=== PATIENT | male | born 1945 | race African-American/Black ===

== ENCOUNTER 2016-10-25 00:46 | Inpatient (IN) | payer MEDICARE, OTHER ==
[2016-10-25] VITALS (9 sets, daily range): BP systolic 131–166; BP diastolic 38–91
[~2016-10-25] VITALS: Ht 188 cm; Wt 74.8 kg
[~2016-10-25 00:46] MED LIST: ALBUTEROL SULF8.5 GM INH; NKM; PREDNISONE50 MG ORAL; ZITHROMAX250 MG ORAL
[2016-10-25] MEDS ORDERED: Nitroglycerin Subl 0.4mg tab (Bottle Of 25) SL PRN (01:00)
[2016-10-25] MEDS ORDERED: Solu-MEDROL 125mg Inj IVP ONE (01:00)
[2016-10-25 01:44] LABS: BASOPHILS % (AUTO) 1.5 % (0.0-2.0); EOSINOPHILS % (AUTO) 5.9 % (0.0-3.0); LYMPHOCYTES % (AUTO) 25.4 % (20.0-45.0); MEAN CORPUSCULAR HGB CONC 32.2 G/DL (32.0-36.0); MEAN CORPUSCULAR VOLUME 90 FL (80-99); MEAN PLATELET VOLUME 6.2 FL (6.5-10.1); MONOCYTES % (AUTO) 11.7 % (1.0-10.0); NEUTROPHILS % (AUTO) 55.5 % (45.0-75.0); PLATELET COUNT 232 K/UL (150-450); RED BLOOD COUNT 4.24 M/UL (4.70-6.10); RED CELL DISTRIBUTION WIDTH 13.8 % (11.6-14.8); WHITE BLOOD COUNT 6.1 K/UL (4.8-10.8)
[2016-10-25 01:49] LABS: ALANINE AMINOTRANSFERASE 31 U/L (3-41); ALBUMIN/GLOBULIN RATIO 1.1 (1.0-2.7); ANION GAP 16 (5-15); ASPARTATE AMINO TRANSFERASE 62 U/L (5-40); CALCIUM 9.3 mg/dL (8.6-10.2); CARBON DIOXIDE 26 mEQ/L (20-30); CHLORIDE 103 mEQ/L (98-107); CREATININE 0.9 mg/dL (0.7-1.2); GLOMERULAR FILTRATION RATE > 60 mL/min (>60); HEMOLYSIS 6; POTASSIUM 3.8 mEQ/L (3.4-4.9); SODIUM 145 mEQ/L (135-145); TOTAL PROTEIN 7.6 g/dL (6.6-8.7)
[2016-10-25 01:52] LABS: TROPONIN I < 0.30 ng/mL (<=0.30)
--- NOTE | 2016-10-25 03:37 | Emergency Room Report ---
History of Present Illness General Chief Complaint: Dyspnea/Respdistress Source: Patient, EMS Present Illness HPI Patient is a 71-year-old male who presented after increased shortness of breath. Patient was given breathing treatments by paramedics. Patient prior history of COPD as well as CHF . The patient had onset of symptoms the gradual onset. Patient was noted be having increased difficulty breathing worse with supine position. Patient prior history of smoking. Allergies: Coded Allergies: NO KNOWN ALLERGIES (Unverified Allergy, Unknown, 03/26/15) Patient History Past Medical History: see triage record Reviewed Nursing Documentation: PMH: Agreed, PSxH: Agreed Nursing Documentation-PMH Hx Hypertension: Yes Hx Pacemaker: No Hx Asthma: Yes Hx COPD: Yes Hx Diabetes: No Hx Cancer: No Hx Gastrointestinal Problems: No Hx Dialysis: No Hx Neurological Problems: No Hx Cerebrovascular Accident: No Hx Seizures: No Review of Systems All Other Systems: negative except mentioned in HPI Physical Exam Vital Signs Date Time Temp Pulse Resp B/P Pulse Ox O2 Delivery O2 Flow Rate FiO2 10/25/16 00:36 104 99 4.0 10/25/16 00:36 98.1 18 186/107 Nasal Cannula Sp02 EP Interpretation: reviewed, normal General Appearance: alert, GCS 15, moderate distress, thin, Chronically Ill Head: atraumatic ENT: normal ENT inspection, hearing grossly normal, normal voice Neck: normal inspection, full range of motion, supple, no bony tend Respiratory: no retraction, accessory muscle use, wheezing, expiration Cardiovascular #1: regular rate, rhythm, no edema Gastrointestinal: normal inspection, normal bowel sounds, non tender, soft, no guarding, no hernia Genitourinary: no CVA tenderness Musculoskeletal: normal inspection, back normal, normal range of motion Neurologic: normal inspection, alert, responsive, upper leather cutter III-XII nml as tested, speech normal Psychiatric: normal inspection, judgement/insight normal, mood/affect normal Skin: normal inspection, normal color, no rash Medical Decision Making Diagnostic Impression: Primary Impression: COPD exacerbation Additional Impression: Rhabdomyolysis ER Course Patient presented for shortness of breath.Differential included but was not limited to anemia, pneumonia, pneumothorax, myocardial infarction, pericardial effusion, congestive heart failure, acidosis. Because of complexity of patient' s case laboratory testing and imaging studies were ordered.Chest x-ray one view interpreted by me showed COPD changes. The cardiac size was noted to be normal.Patient was started on IV fluids. Patient noted to have evidence of rhabdomyolysis on laboratory testing patient was given breathing treatments as well as steroids. Patient was discussed with Dr. Carmen Soriano for inpatient management Labs Test 10/25/16 01:00 10/25/16 03:30 White Blood Count 6.1 K/UL (4.8-10.8) Red Blood Count 4.24 M/UL (4.70-6.10) Hemoglobin 12.3 G/DL (14.2-18.0) Hematocrit 38.2 % (42.0-52.0) Mean Corpuscular Volume 90 FL (80-99) Mean Corpuscular Hemoglobin 29.0 PG (27.0-31.0) Mean Corpuscular Hemoglobin Concent 32.2 G/DL (32.0-36.0) Red Cell Distribution Width 13.8 % (11.6-14.8) Platelet Count 232 K/UL (150-450) Mean Platelet Volume 6.2 FL (6.5-10.1) Neutrophils (%) (Auto) 55.5 % (45.0-75.0) Lymphocytes (%) (Auto) 25.4 % (20.0-45.0) Monocytes (%) (Auto) 11.7 % (1.0-10.0) Eosinophils (%) (Auto) 5.9 % (0.0-3.0) Basophils (%) (Auto) 1.5 % (0.0-2.0) Sodium Level 145 mEQ/L (135-145) Potassium Level 3.8 mEQ/L (3.4-4.9) Chloride Level 103 mEQ/L (98-107) Carbon Dioxide Level 26 mEQ/L (20-30) Anion Gap 16 (5-15) Blood Urea Nitrogen 9 mg/dL (7-23) Creatinine 0.9 mg/dL (0.7-1.2) Estimat Glomerular Filtration Rate > 60 mL/min (>60) Glucose Level 137 mg/dL (74-106) Lactic Acid Level 1.10 mmol/L (0.66-2.22) Calcium Level 9.3 mg/dL (8.6-10.2) Total Bilirubin 0.5 mg/dL (0.0-1.2) Aspartate Amino Transf (AST/SGOT) 62 U/L (5-40) Alanine Aminotransferase (ALT/SGPT) 31 U/L (3-41) Alkaline Phosphatase 85 U/L (40-129) Total Creatine Kinase 1441 U/L (38-174) Troponin I < 0.30 ng/mL (<=0.30) Total Protein 7.6 g/dL (6.6-8.7) Albumin 4.0 g/dL (3.5-5.2) Globulin 3.6 g/dL Albumin/Globulin Ratio 1.1 (1.0-2.7) Chest X-Ray Diagnostic Results EP Interpretation: Yes Findings: no consolidation, no effusion, no pneumothorax, no acute cardiopulmonary disease Number of Views: 1 Last Vital Signs Date Time Temp Pulse Resp B/P Pulse Ox O2 Delivery O2 Flow Rate FiO2 10/25/16 01:00 98.2 81 22 157/89 100 Nasal Cannula 2.0 Status: unchanged Disposition: ADMITTED INPATIENT Condition: Serious Phan Henderson Oct 25, 2016 03:37
[2016-10-25 04:29] LABS: APPEARANCE,URINE CLEAR; KETONES,URINE NEGATIVE (NEGATIVE); LEUKOCYTE ESTERASE ,URINE NEGATIVE (NEGATIVE); NITRITE,URINE NEGATIVE (NEGATIVE); PH,URINE 7 (4.5-8.0); PROTEIN,URINE 2+ (NEGATIVE); UROBILINOGEN,URINE NORMAL MG/DL (0.0-1.0)
[2016-10-25 04:39] LABS: BACTERIA,URINE FEW /HPF; RBC,URINE 0-2 /HPF (0 - 0); SQUAMOUS EPITHELIAL CELL,UR FEW /LPF (NONE/OCC); WBC,URINE 0-2 /HPF (0 - 0)
[2016-10-25 05:13] LABS: CKMB 18.9 ng/mL (< 6.7)
[2016-10-25] MEDS ORDERED: NKM (06:41)
[2016-10-25] MEDS ORDERED: DuoNeb 0.5-3(2.5)mg/3ml neb HHN PRN ×2 (08:15→16:00)
--- NOTE | 2016-10-25 08:36 | Infectious Diseases Prog Note ---
Assessment/Plan Problems: (1) Asthma exacerbation Assessment & Plan: will start levaquin, send sputum for culture (2) COPD exacerbation Assessment & Plan: will start levaquin empirically , and send sputum culture, continue nebulizers (3) CHF (congestive heart failure) Assessment & Plan: continue diuretics, consult cardiology (4) Tobacco abuse disorder Assessment & Plan: recommend counseling, and tobacco cessation (5) Rhabdomyolysis Assessment & Plan: continue hydration, monitor CK level (6) Cocaine abuse Assessment & Plan: recommend counseling and rehab Subjective Allergies: Coded Allergies: NO KNOWN ALLERGIES (Unverified Allergy, Unknown, 03/26/15) Objective Vital Signs Last 24 Hour Vital Signs Date Time Temp Pulse Resp B/P Pulse Ox O2 Delivery O2 Flow Rate FiO2 10/25/16 08:27 97.7 72 20 166/73 95 Nasal Cannula 1.0 10/25/16 06:47 98.7 78 21 154/76 92 10/25/16 06:30 98.6 84 17 143/38 100 Room Air 10/25/16 06:04 98.6 84 17 143/38 100 Room Air 10/25/16 05:45 157/89 10/25/16 04:55 98.4 82 18 160/88 99 Room Air 10/25/16 03:00 84 19 155/87 100 Nasal Cannula 2.0 10/25/16 01:00 98.2 81 22 157/89 100 Nasal Cannula 2.0 10/25/16 01:00 81 22 Nasal Cannula 2.0 10/25/16 00:36 98.1 114 18 186/107 94 Nasal Cannula 2.0 10/25/16 00:36 104 99 4.0 Height (Feet): 6 Height (Inches): 2.00 Weight (Pounds): 165 Laboratory Tests Test 10/25/16 01:00 10/25/16 03:30 White Blood Count 6.1 K/UL (4.8-10.8) Red Blood Count 4.24 M/UL (4.70-6.10) L Hemoglobin 12.3 G/DL (14.2-18.0) L Hematocrit 38.2 % (42.0-52.0) L Mean Corpuscular Volume 90 FL (80-99) Mean Corpuscular Hemoglobin 29.0 PG (27.0-31.0) Mean Corpuscular Hemoglobin Concent 32.2 G/DL (32.0-36.0) Red Cell Distribution Width 13.8 % (11.6-14.8) Platelet Count 232 K/UL (150-450) Mean Platelet Volume 6.2 FL (6.5-10.1) L Neutrophils (%) (Auto) 55.5 % (45.0-75.0) Lymphocytes (%) (Auto) 25.4 % (20.0-45.0) Monocytes (%) (Auto) 11.7 % (1.0-10.0) H Eosinophils (%) (Auto) 5.9 % (0.0-3.0) H Basophils (%) (Auto) 1.5 % (0.0-2.0) Sodium Level 145 mEQ/L (135-145) Potassium Level 3.8 mEQ/L (3.4-4.9) Chloride Level 103 mEQ/L (98-107) Carbon Dioxide Level 26 mEQ/L (20-30) Anion Gap 16 (5-15) H Blood Urea Nitrogen 9 mg/dL (7-23) Creatinine 0.9 mg/dL (0.7-1.2) Estimat Glomerular Filtration Rate > 60 mL/min (>60) Glucose Level 137 mg/dL (74-106) H Lactic Acid Level 1.10 mmol/L (0.66-2.22) Calcium Level 9.3 mg/dL (8.6-10.2) Total Bilirubin 0.5 mg/dL (0.0-1.2) Aspartate Amino Transf (AST/SGOT) 62 U/L (5-40) H Alanine Aminotransferase (ALT/SGPT) 31 U/L (3-41) Alkaline Phosphatase 85 U/L (40-129) Total Creatine Kinase 1441 U/L (38-174) H Creatine Kinase MB 18.9 ng/mL (< 6.7) H Creatine Kinase MB Relative Index 1.3 Troponin I < 0.30 ng/mL (<=0.30) Total Protein 7.6 g/dL (6.6-8.7) Albumin 4.0 g/dL (3.5-5.2) Globulin 3.6 g/dL Albumin/Globulin Ratio 1.1 (1.0-2.7) Urine Color Pale yellow Urine Appearance Clear Urine pH 7 (4.5-8.0) Urine Specific [place] 1.010 (1.005-1.035) Urine Protein 2+ (NEGATIVE) H Urine Glucose (UA) Negative (NEGATIVE) Urine Ketones Negative (NEGATIVE) Urine Occult Blood Negative (NEGATIVE) Urine Nitrite Negative (NEGATIVE) Urine Bilirubin Negative (NEGATIVE) Urine Urobilinogen Normal MG/DL (0.0-1.0) Urine Leukocyte Esterase Negative (NEGATIVE) Urine RBC 0-2 /HPF (0 - 0) H Urine WBC 0-2 /HPF (0 - 0) Urine Squamous Epithelial Cells Few /LPF (NONE/OCC) Urine Bacteria Few /HPF (NONE) Current Medications Medications (Trade) Dose Ordered Sig/[place] Route PRN Reason Start Time Stop Time Status Last Admin Dose Admin Acetaminophen (Tylenol) 650 mg Q4H PRN ORAL Mild Pain/Temp > 100.5 10/25/16 08:15 11/24/16 08:14 Albuterol/ Ipratropium (DuoNeb 0.5-3(2.5)mg/3ml) 3 ml Q4H PRN HHN Shortness of Breath 10/25/16 08:15 10/30/16 08:14 Harley Sykes M.D. Oct 25, 2016 08:36
--- NOTE | 2016-10-25 11:59 | Diagnostic Imaging Report ---
Indication: SOB Technique: One view of the chest Comparison: 12/27/2012 Findings: Lungs are hyperinflated, as in COPD. Lungs and pleural spaces are clear. The heart size is normal. Aorta is elongated tortuous and calcified. Impression: COPD changes No acute process This agrees with the preliminary interpretation provided by the emergency room physician
[2016-10-25] MEDS ORDERED: Promethazine/Codeine 5ml UD ORAL PRN ×2 (12:00→16:00)
[2016-10-25] MEDS ORDERED: Solu-MEDROL 125mg Inj IV SCH (12:00)
--- NOTE | 2016-10-25 12:04 | Consultation ---
History of Present Illness General Date patient seen: Oct 25, 2016 Chief Complaint: Dyspnea/Respdistress Referring physician: Dr. Bell Reason for Consultation: Dyspnea Present Illness HPI 71-year-old homeless male, current smoker, crack user, with hx of COPD who presented after increased shortness of breath. Patient was given breathing treatments by paramedics. He was having increased difficulty breathing worse with supine position. Pt was in respiratory distress in Er and is admitted to telemetry for further evaluation Allergies: Coded Allergies: NO KNOWN ALLERGIES (Unverified Allergy, Unknown, 03/26/15) Medication History Scheduled No Known Medications* (NKM - No Known Medications*), 0 ., (Reported) Discontinued Medications Albuterol Sulfate* (Albuterol Sulfate Mdi*), 2 PUFF INH Q4H Discontinued Reason: Therapy completed Albuterol Sulfate* (Albuterol Sulfate Mdi*), 2 PUFF INH Q4H PRN for Shortness of Breath Discontinued Reason: Therapy completed Albuterol Sulfate* (Albuterol Sulfate Mdi*), 2 PUFF INH Q4H PRN for For Cough Discontinued Reason: Therapy completed Azithromycin* (Zithromax*), 250 MG ORAL DAILY Discontinued Reason: Therapy completed Prednisone* (Prednisone*), 50 MG ORAL DAILY Discontinued Reason: Therapy completed Prednisone* (Prednisone*), 50 MG ORAL DAILY Discontinued Reason: Therapy completed Patient History Healthcare decision maker Resuscitation status Full Code Advanced Directive on File Past Medical/Surgical History Past Medical/Surgical History: (1) COPD (chronic obstructive pulmonary disease) (2) Homelessness Review of Systems All Other Systems: negative except mentioned in HPI Physical Exam General Appearance: cachetic Lines, tubes and drains: peripheral, central line HEENT: normocephalic, anicteric Neck: non-tender, normal alignment Respiratory/Chest: chest wall non-tender, decreased breath sounds, rhonchi - bilaterally Cardiovascular/Chest: normal peripheral pulses, normal rate, no JVD Abdomen: normal bowel sounds Genitourinary/Rectal: normal genital exam, normal rectal exam Extremities: normal range of motion Last 24 Hour Vital Signs Date Time Temp Pulse Resp B/P Pulse Ox O2 Delivery O2 Flow Rate FiO2 10/25/16 11:23 97.0 77 20 161/91 95 Nasal Cannula 1.0 10/25/16 08:27 97.7 72 20 166/73 95 Nasal Cannula 1.0 10/25/16 08:00 70 10/25/16 06:47 98.7 78 21 154/76 92 10/25/16 06:30 98.6 84 17 143/38 100 Room Air 10/25/16 06:04 98.6 84 17 143/38 100 Room Air 10/25/16 05:45 157/89 10/25/16 04:55 98.4 82 18 160/88 99 Room Air 10/25/16 03:00 84 19 155/87 100 Nasal Cannula 2.0 10/25/16 01:00 98.2 81 22 157/89 100 Nasal Cannula 2.0 10/25/16 01:00 81 22 Nasal Cannula 2.0 10/25/16 00:36 98.1 114 18 186/107 94 Nasal Cannula 2.0 10/25/16 00:36 104 99 4.0 Intake and Output 10/24/16 10/25/16 19:00 07:00 Intake Total 1000 ml Output Total 1350 ml Balance -350 ml Intake IV Total 1000 ml Output Urine Total 1350 ml # Voids 2 Laboratory Tests Test 10/25/16 01:00 10/25/16 03:30 White Blood Count 6.1 K/UL (4.8-10.8) Red Blood Count 4.24 M/UL (4.70-6.10) L Hemoglobin 12.3 G/DL (14.2-18.0) L Hematocrit 38.2 % (42.0-52.0) L Mean Corpuscular Volume 90 FL (80-99) Mean Corpuscular Hemoglobin 29.0 PG (27.0-31.0) Mean Corpuscular Hemoglobin Concent 32.2 G/DL (32.0-36.0) Red Cell Distribution Width 13.8 % (11.6-14.8) Platelet Count 232 K/UL (150-450) Mean Platelet Volume 6.2 FL (6.5-10.1) L Neutrophils (%) (Auto) 55.5 % (45.0-75.0) Lymphocytes (%) (Auto) 25.4 % (20.0-45.0) Monocytes (%) (Auto) 11.7 % (1.0-10.0) H Eosinophils (%) (Auto) 5.9 % (0.0-3.0) H Basophils (%) (Auto) 1.5 % (0.0-2.0) Sodium Level 145 mEQ/L (135-145) Potassium Level 3.8 mEQ/L (3.4-4.9) Chloride Level 103 mEQ/L (98-107) Carbon Dioxide Level 26 mEQ/L (20-30) Anion Gap 16 (5-15) H Blood Urea Nitrogen 9 mg/dL (7-23) Creatinine 0.9 mg/dL (0.7-1.2) Estimat Glomerular Filtration Rate > 60 mL/min (>60) Glucose Level 137 mg/dL (74-106) H Lactic Acid Level 1.10 mmol/L (0.66-2.22) Calcium Level 9.3 mg/dL (8.6-10.2) Total Bilirubin 0.5 mg/dL (0.0-1.2) Aspartate Amino Transf (AST/SGOT) 62 U/L (5-40) H Alanine Aminotransferase (ALT/SGPT) 31 U/L (3-41) Alkaline Phosphatase 85 U/L (40-129) Total Creatine Kinase 1441 U/L (38-174) H Creatine Kinase MB 18.9 ng/mL (< 6.7) H Creatine Kinase MB Relative Index 1.3 Troponin I < 0.30 ng/mL (<=0.30) Total Protein 7.6 g/dL (6.6-8.7) Albumin 4.0 g/dL (3.5-5.2) Globulin 3.6 g/dL Albumin/Globulin Ratio 1.1 (1.0-2.7) Urine Color Pale yellow Urine Appearance Clear Urine pH 7 (4.5-8.0) Urine Specific [place] 1.010 (1.005-1.035) Urine Protein 2+ (NEGATIVE) H Urine Glucose (UA) Negative (NEGATIVE) Urine Ketones Negative (NEGATIVE) Urine Occult Blood Negative (NEGATIVE) Urine Nitrite Negative (NEGATIVE) Urine Bilirubin Negative (NEGATIVE) Urine Urobilinogen Normal MG/DL (0.0-1.0) Urine Leukocyte Esterase Negative (NEGATIVE) Urine RBC 0-2 /HPF (0 - 0) H Urine WBC 0-2 /HPF (0 - 0) Urine Squamous Epithelial Cells Few /LPF (NONE/OCC) Urine Bacteria Few /HPF (NONE) Height (Feet): 6 Height (Inches): 2.00 Weight (Pounds): 165 Medications Current Medications Medications (Trade) Dose Ordered Sig/[place] Route PRN Reason Start Time Stop Time Status Last Admin Dose Admin Acetaminophen 650 mg 650 mg Q4H PRN ORAL Mild Pain/Temp > 100.5 10/25/16 08:15 11/24/16 08:14 Albuterol/ Ipratropium (DuoNeb 0.5-3(2.5)mg/3ml) 3 ml Q4H PRN HHN Shortness of Breath 10/25/16 08:15 10/30/16 08:14 Albuterol/ Ipratropium (DuoNeb 0.5-3(2.5)mg/3ml) 3 ml Q6HRT HHN 10/25/16 13:00 10/30/16 12:59 Levofloxacin (Levaquin) 100 ml @ 100 mls/hr Q24H IVPB 10/25/16 10:00 11/01/16 09:59 10/25/16 10:10 Promethazine HCl/ Codeine (Phenergan with Codeine) 5 ml Q4H PRN ORAL For Cough 10/25/16 12:00 11/24/16 11:59 Theophylline ([place]) 100 mg QHS ORAL 10/25/16 21:00 11/24/16 20:59 Assessment/Plan Problem List: (1) Purulent bronchitis ICD Codes: J41.1 - Mucopurulent chronic bronchitis SNOMED: 76329448 (2) COPD exacerbation ICD Codes: J44.1 - Chronic obstructive pulmonary disease with (acute) exacerbation SNOMED: 464865793 (3) Tobacco abuse disorder ICD Codes: Z72.0 - Tobacco use SNOMED: 72996905, 612146037 (4) Homelessness ICD Codes: Z59.0 - Homelessness SNOMED: 28974113 Assessment/Plan respiratory treatment IV antibioitcs steroids check sputum social service check urine for drugs. SHABNAM MARIN Oct 25, 2016 12:04
[2016-10-25] MEDS ORDERED: DuoNeb 0.5-3(2.5)mg/3ml neb HHN SCH (13:00)
[2016-10-25 13:05] LABS: PROTHROMBIN TIME 10.5 SEC (9.30-11.50)
[2016-10-25 13:17] LABS: BAND NEUTROPHILS % (MANUAL) 0 % (0-8); BASOPHILS % (MANUAL) 0 % (0-2); EOSINOPHILS % (MANUAL) 6 % (0-3); LYMPHOCYTES % (MANUAL) 29 % (20-45); NEUTROPHILS % (MANUAL) 55 % (45-75); PLATELET ESTIMATE ADEQUATE; TOTAL CELLS COUNTED 100
[2016-10-25 13:18] LABS: ANISOCYTOSIS 1+; HYPOCHROMASIA 1+; PLATELET MORPHOLOGY NORMAL
[2016-10-25 13:20] LABS: PATH BLOOD SMEAR/OMC SENT TO PATHOLOGIST
[2016-10-25 14:06] LABS: RETICULOCYTE COUNT 0.7 % (0.0-2.0)
--- NOTE | 2016-10-25 17:07 | History and Physical Report ---
DATE OF ADMISSION: 10/25/2016 HISTORY OF PRESENT ILLNESS: The patient is admitted for COPD exacerbation and rhabdomyolysis. The patient is complaining of shortness of breath. The patient is also apparently homeless and wheezing and cough. He is admitted for COPD exacerbation as well as mild rhabdomyolysis. Denies orthopnea. PAST MEDICAL HISTORY: History of COPD/asthma, CHF, and hypertension. PAST SURGICAL HISTORY: Hernia surgery repair. ALLERGIES: No known allergies. MEDICATIONS: None. SOCIAL HISTORY: The patient is homeless. The patient denies history of smoking. The patient does smoke. He is homeless, and has drug and alcohol abuse. FAMILY HISTORY: Noncontributory. REVIEW OF SYSTEMS: HEENT: Denies headache. Respiratory: Reports shortness of breath. Reports cough for the past couple of days and wheezing. Cardiovascular: Denies chest pain. Gastrointestinal: Denies nausea, vomiting, and diarrhea. Extremities: Denies pain. Central Nervous System: Denies change in vision or speech pattern. PHYSICAL EXAMINATION: VITAL SIGNS: Temperature is 98.4, pulse is 82, and blood pressure 160/88. HEENT: PERRLA. NECK: Supple. No lymphadenopathy. CHEST: Does have bilateral wheezing. CARDIOVASCULAR: Regular rate and rhythm. GASTROINTESTINAL: Soft, nontender, and nondistended. No organomegaly. EXTREMITIES: No edema. Moves all four extremities. NEUROLOGIC: Sensory intact to light touch. Reflexes are equal on both sides. Moves all four extremities. LABORATORY DATA: WBC of 6.1, hemoglobin 12.3, and platelets of 232,000. Sodium 145, potassium 3.8, BUN of 9, creatinine 0.9, and glucose of 137. CPK of 1441. ASSESSMENT AND PLAN: Rhabdomyolysis. Dr. Laguerre was consulted for IV fluids for the rhabdomyolysis and chronic obstructive pulmonary disease exacerbation; Dr. Holbrook as well as Dr. Sykes were consulted for wheezing, for the COPD, as well as bronchitis; and Dr. Gay because the patient has paranoid ideations and schizophrenia for medication management. Social Work is also consulted. The patient is weak. Carmen Bell M.D. DR: JACQUIE JOB#: [id number] CC:
[2016-10-25] MEDS: Solu-MEDROL 125mg Inj IV SCH ×2 (17:52→23:50)
[2016-10-25] MEDS: DuoNeb 0.5-3(2.5)mg/3ml neb HHN SCH (19:07)
[2016-10-25] MEDS ORDERED: Theophylline ER 100mg ORAL SCH ×2 (21:00)
--- NOTE | 2016-10-25 23:18 | Consultation ---
DATE OF CONSULTATION: INFECTIOUS DISEASE CONSULTATION: REASON FOR CONSULTATION: COPD exacerbation and recommendation for antibiotics therapy. REQUESTING PHYSICIAN: Carmen Bell M.D. HISTORY OF PRESENT ILLNESS: The patient is a 71-year-old male with past medical history of COPD, asthma, and hypertension, presented to [facility] with increased shortness of breath. The patient received nebulizer treatment by the paramedics with no significant improvement. He has been short of breath for the last couple of days. It gets worse with activities and lying flat. He is a former smoker but denied any current smoking at this point. The patient had tachycardia with temperature of 98.1 degrees in the emergency room. He was saturating 99% on nasal cannula. His chest x-ray showed no acute pathology, but urine toxicology screening was positive for cocaine, so, I was consulted by the primary provider for antibiotics recommendation for his COPD exacerbation. PAST MEDICAL HISTORY: Significant for hypertension, asthma, and COPD. PAST SURGICAL HISTORY: Negative. MEDICATIONS: He received Levaquin in the emergency room. In the field, prednisolone. For further details, please refer to MAR. ALLERGIES: He has no known drug allergy. SOCIAL HISTORY: The patient is homeless. He used drugs mainly cocaine and former smoker. FAMILY HISTORY: Not contributory. REVIEW OF SYSTEMS: A 12-point system reviewed were all negative apart from the one I mentioned above in my History and Physical. PHYSICAL EXAMINATION: VITAL SIGNS: Temperature 97.9 degrees, pulse 74, respirations 22, blood pressure 131/68, and saturation 98% on two liters nasal cannula. GENERAL: This is an elderly male, up in bed, alert, but lethargic, coughing, not in acute distress. HEENT: Normocephalic and atraumatic. Pupils are reactive to light. Congested sclera. Dry oral mucosa. Poor dental hygiene. NECK: Supple. No lymphadenopathy. CARDIOVASCULAR: Regular rate and rhythm. No murmur or gallop. LUNGS: He had wheezing on both sides. Diminished breathing sounds. No respiratory distress. ABDOMEN: Soft, nontender, and nondistended. Positive bowel sounds. No hepatosplenomegaly or ascites. EXTREMITIES: No edema or cyanosis. LABORATORY AND DIAGNOSTIC DATA: Lab showed white count 6.1, hemoglobin 12.3, and platelet count 232,000. BUN 9 and creatinine 0.9. Toxicology screening positive for cocaine. Urinalysis negative for nitrite and leukocyte esterase with few bacteria. Imaging, chest x-ray showed no acute process. ASSESSMENT AND PLAN: 1. Acute asthma with chronic obstructive pulmonary disease exacerbation. We will start Levaquin empirically. Send sputum for culture and influenza screening. Continue nebulizer treatment. Titrate oxygen as needed. 2. Possible congestive heart failure. Continue diuretics. Consult cardiology. Obtain an echocardiogram. 3. Tobacco abuse disorder. Recommend counseling and tobacco cessation. 4. Rhabdomyolysis. Continue hydration. Monitor CK level. 5. Cocaine abuse. Recommend counseling and rehabilitation. Harley Sykes M.D. DR: Jennifer JOB#: [id number] CC:
--- NOTE | 2016-10-25 23:18 | Cardiology Report ---
APPROVED REPORT EKG Measurement Heart [id number] Sinus rhythm with premature supraventricular complexes Right atrial enlargement Voltage criteria for left ventricular hypertrophy Nonspecific ST abnormality Abnormal ECG
--- NOTE | 2016-10-25 23:48 | Consultation ---
DATE OF CONSULTATION: 10/25/2016 HISTORY OF PRESENT ILLNESS: This is a 71-year-old male with a history of COPD and rhabdomyolysis. The patient was admitted for shortness of breath and medical proposition. He also had mild rhabdomyolysis. Psychiatry was consulted. The patient has been presenting with delusions, paranoid, anxious and has also history of psychotic disorder. During the evaluation, the patient is endorsing delusions, depressed mood and decreased energy. PAST PSYCHIATRIC HISTORY: Diagnosed with schizophrenia and has been treated with antipsychotics in the past. PAST MEDICAL HISTORY: Includes chronic obstructive pulmonary disease, asthma, congestive heart failure and hypertension. PAST SURGICAL HISTORY: Hernia. ALLERGIES: No known drug allergies. CURRENT MEDICATIONS: He has not been taking any medications. SUBSTANCE ABUSE HISTORY: He has a history of illicit drug use and alcohol. However, he denies any smoking in the past. SOCIAL HISTORY: The patient is homeless on [facility]. MENTAL STATUS EXAMINATION: The patient is alert and oriented x3. His mood is neutral. Affect is constricted. Congruent mood. Thought process is concrete. Thought content, there is no suicidal or homicidal ideation. Positive for delusions. Insight and judgment is impaired. ASSESSMENT: AXIS I Psychotic disorder. AXIS II Deferred. AXIS III As above. AXIS Moderate. AXIS V 50. PLAN: The patient may benefit from low-dose of antipsychotics. He is reluctant to take any medication at this time. He was provided with supportive therapy and reality orientation with attempts and educated the patient more and encouraged him to take medications. Enedelia Gay M.D. DR: DORA JOB#: [id number] CC:
[2016-10-26] VITALS: BP 142/81
[2016-10-26] MEDS: DuoNeb 0.5-3(2.5)mg/3ml neb HHN SCH ×2 (00:53→07:24)
[2016-10-26 04:00] VITALS: BP 139/77
[2016-10-26] MEDS: Solu-MEDROL 125mg Inj IV SCH (05:40)
[2016-10-26 07:03] LABS: MEAN CORPUSCULAR HGB CONC 31.8 G/DL (32.0-36.0); MEAN CORPUSCULAR VOLUME 91 FL (80-99); MEAN PLATELET VOLUME 6.6 FL (6.5-10.1); PLATELET COUNT 219 K/UL (150-450); RED BLOOD COUNT 4.01 M/UL (4.70-6.10); RED CELL DISTRIBUTION WIDTH 14.2 % (11.6-14.8); WHITE BLOOD COUNT 7.4 K/UL (4.8-10.8)
[2016-10-26 07:50] VITALS: BP 151/94
[2016-10-26 09:38] LABS: ANISOCYTOSIS 1+; BAND NEUTROPHILS % (MANUAL) 1 % (0-8); BASOPHILS % (MANUAL) 0 % (0-2); EOSINOPHILS % (MANUAL) 0 % (0-3); HYPOCHROMASIA 1+; LYMPHOCYTES % (MANUAL) 7 % (20-45); NEUTROPHILS % (MANUAL) 88 % (45-75); PLATELET ESTIMATE ADEQUATE; PLATELET MORPHOLOGY NORMAL; TOTAL CELLS COUNTED 100
--- NOTE | 2016-10-26 11:06 | Cardiology Report ---
APPROVED REPORT EXAM: Two-dimensional and M-mode echocardiogram with Doppler and color Doppler. INDICATION Left ventricular function M-Mode DIMENSIONS IVSd0.8 (0.7-1.1cm)Left Atrium (MM)3.3 (1.6-4.0cm) LVDd5.2 (3.5-5.6cm)Aortic Root2.5 (2.0-3.7cm) PWd0.9 (0.7-1.1cm)Aortic Cusp Exc.2.0 (1.5-2.0cm) LVDs3.2 (2.5-4.0cm) PWs1.4 cm Technically difficult study due to poor acoustic windows. Normal left ventricular chamber size, systolic function and wall motion. Left ventricular ejection fraction estimated to be 60-65%. No evidence of left ventricular hypertrophy. No evidence of pericardial fat or effusion. All other cardiac chamber sizes are within normal limits. Focal aortic valve sclerosis with adequate cusp excursion Thickened mitral valve leaflets with normal excursion. Mitral annulus and aortic root calcification. Pulmonic valve not well visualized. Normal tricuspid valve structure. IVC is normal in size with physiologic collapse. A color flow and spectral Doppler study was performed and revealed: No aortic regurgitation. No mitral regurgitation. Left ventricular diastolic dysfunction not obtainable due to aarhythmia. No tricuspid regurgitation.
--- NOTE | 2016-10-27 12:09 | Diagnostic Imaging Report ---
APPROVED REPORT CPT Code: 00279 Present Symptoms Shortness of breath BILATERAL: Imaging reveals a patent deep venous system bilaterally. There is no evidence of thrombus within the femoral, popliteal or tibial segments. The greater saphenous veins are also within normal limits. Doppler indicates normal spontaneous flow within these segments. Incidental finding: Mildly calcified arteries and veins throughout.
--- NOTE | 2016-10-27 16:05 | Discharge Summary ---
Discharge Summary Hospital Course Date of Admission Oct 25, 2016 at 04:25 Date of Discharge Oct 26, 2016 at 08:40 Admitting Diagnosis copd exacerbation, rhabdo HPI Brandon Oquendo is a 71 year old male who was admitted on Oct 25, 2016 at 04:25 for Chronic Obstructive Pulmonary Exacerbation,[facility] Course [id number] Discharge Discharge Disposition Patient left AMA Discharge Diagnoses: Bernie Thao NP Oct 27, 2016 16:05
--- NOTE | 2016-10-28 01:38 | Discharge Summary 2 SIG ---
DATE OF ADMISSION: 10/25/2016 DATE OF DISCHARGE: 10/26/2016 CONSULTANTS: 1. Enedelia Gay M.D. 2. Harley Sykes M.D. 3. Eugene Holbrook M.D. BRIEF HOSPITAL COURSE: The patient is a 71-year-old male who presented to the ED complaining of shortness of breath. He has history of chronic obstructive pulmonary disease as well as congestive heart failure. Symptoms had gradual onset with increased difficulty breathing worse with supine position. On evaluation at ED, chest x-ray showed chronic obstructive pulmonary disease changes with evidence of rhabdomyolysis. The patient was given IV hydration, breathing treatments and IV steroids and was admitted for inpatient care. Dr. Holbrook was consulted. The patient was given respiratory treatment. Dr. Sykes was consulted for antibiotic management. The patient was started empirically on Levaquin. Influenza A and B was negative. Dr. Gay was consulted. The patient presented with delusions, paranoia, and anxiety and has a history of psychotic disorder. There was no suicidal or homicidal ideation. Insight and judgment was impaired. The patient was recommended to be started on low-dose antipsychotics; however, he was reluctant to take any medications. He was provided with supportive therapy and reality orientation. Full treatment was not carried out as the patient signed out against medical advice. FINAL DIAGNOSES: 1. Acute asthma exacerbation. 2. Acute chronic obstructive pulmonary disease exacerbation. 3. Tobacco use disorder. 4. Rhabdomyolysis. 5. Purulent bronchitis. 6. Homelessness. 7. Cocaine abuse. 8. Noncompliance as the patient signed out against medical advice. Carmen Bell M.D. I have been assigned to dictate discharge summary on this account and I was not involved in the patient's management. Bernie Thao N.P. DR: ROSS JOB#: [id number] CC: [facility]
== END 2016-10-26 08:40 | disposition left against medical advice (07) | DRG 140 ==
LOC: EDBD 00:46 → EMR 01:00 → EDBEDREQ 03:47 → 2E 04:25 → EDBEDREQ 05:22 → 4W 14:48
DX: J44.1 Chronic obstructive pulmonary disease with (acute) exacerbation (principal); M62.82 Rhabdomyolysis; F17.200 Nicotine dependence, unspecified, uncomplicated; J41.1 Mucopurulent chronic bronchitis; Z59.0 Homelessness; F14.10 Cocaine abuse, uncomplicated; Z91.19 Patient's noncompliance with other medical treatment and regimen; F29 Unspecified psychosis not due to a substance or known physiological condition; I10 Essential (primary) hypertension; F20.9 Schizophrenia, unspecified
CPT/HCPCS: 36415; 71010; 80053; 80300; 81003; 82378; 82550; 82553; 82607; 82746; 83540; 83550; 83605; 83615; 84484; 85007; 85025; 85044; 85060; 85610; 85651; 85730; 86710; 87040; 87070; 87081; 87205; 93005; 93306; 93970; 94640; 94664; J7620